=== PATIENT | male | born 1965 | race Caucasian/White ===

== ENCOUNTER 2016-10-05 04:30 | Emergency (ER) | payer OTHER ==
[~2016-10-05] VITALS: Ht 167.6 cm; Wt 90.7 kg
[~2016-10-05 04:30] MED LIST: ALPRAZOLAM0.5 M4 PO; DILAUDID2 MG PO; PANTOPRAZOLE SO40 M1 PO; PANTOPRAZOLE SO40 MG PO; PAXIL20 MG PO; PAXIL30 M1 PO; PERCOCET 325 MG1 TA2 PO; PERCOCET 5-3251 EACH PO; SUMATRIPTAN SUC50 MG PO; ZOFRAN ODT4 MG PO; ZOFRAN4 M2 SL
--- NOTE | 2016-10-05 04:41 | ED GI/GU/ABDOMINAL COMPLAINT ---
History of Present Illness General Chief Complaint: Abdominal Pain/Flank Pain Stated Complaint: ABD PAIN Source: patient Exam Limitations: no limitations Vital Signs & Intake/Output Vital Signs & Intake/Output Vital Signs Date Time Temp Pulse Resp B/P Pulse O2 O2 Flow FiO2 Ox Delivery Rate 10/05 0441 97 Room Air 10/05 0438 97.6 86 18 148/94 97 Room Air Allergies Coded Allergies: Iodinated Contrast Media - Oral and (IODINATED CONTRAST MEDIA - IV DYE) ( Intermediate, VOMITING 10/05/16) cat dander (Intermediate, ASTHMA EXACERBATION 10/05/16) penicillin G (Intermediate, HIVES 10/05/16) Reconcile Medications Alprazolam 0.5 MG TABLET 1 TAB PO PRN ANXIETY (Reported) Oxycodone HCl/Acetaminophen (Percocet 5-325 MG Tablet) 5 MG-325 MG TABLET 1 TAB PO 4XDP PRN PAIN eight...[id number] Oxycodone HCl/Acetaminophen (Percocet 5-325 MG Tablet) 1 EACH TABLET 1 TAB PO Q4-6 PRN PAIN Pantoprazole Sodium 40 MG TABLET.DR 1 TAB PO DAILY ULCERS (Reported) Paroxetine HCl (Paxil) 30 MG TABLET 1 TAB PO DAILY MENTAL HEALTH (Reported) Sucralfate (Carafate) 1 GRAM TABLET 1 TAB PO 4 TIMES/DAY stomach pain Triage Nurses Notes Reviewed? yes Onset: Gradual Duration: day(s):, waxing and waning Timing: recent history Quality/Severity: burning Location: epigastric Radiation: no radiation Activities at Onset: none Prior Abdominal Problems: similar symptoms Modifying Factors: Worsens With: palpation. Associated Symptoms: abdominal pain, nausea/vomiting HPI: 51-year-old gentleman history of gastric ulcers presents with mid epigastric burning discomfort for the past 4-5 days. He states that he has been taking his acid suppressing medicine without improvement. He states that 2 days ago he had a CAT scan at an outpatient facility which was reportedly negative. This morning he felt that the pain had increased was burning in nature consistent with his prior episodes of gastritis. He notes that he has no chest pain fever chills shortness of breath dysuria or hematuria. He does note slight loose stools. He is otherwise well and has no other concerns. Past History Travel History Traveled to [place] past 21 day No Medical History Any Pertinent Medical History? see below for history Neurological: NONE EENT: NONE Cardiovascular: NONE Respiratory: asthma Gastrointestinal: NONE Hepatic: NONE Renal: NONE Musculoskeletal: NONE Psychiatric: anxiety, depression Endocrine: NONE Blood Disorders: NONE Cancer(s): NONE SHEET ROCK LAYER/Reproductive: NONE Surgical History Surgical History: cholecystectomy, hernia repair-umbilical Psychosocial History What is your primary language Ken[place] Tobacco Use: Refused to answer Family History Hx Contributory? No Review of Systems Review of Systems Constitutional: Reports: no symptoms. EENTM: Reports: no symptoms. Respiratory: Reports: no symptoms. Cardiovascular: Reports: no symptoms. GI: Reports: no symptoms. Genitourinary: Reports: no symptoms. Musculoskeletal: Reports: no symptoms. Skin: Reports: no symptoms. Neurological/Psychological: Reports: no symptoms. Hematologic/Endocrine: Reports: no symptoms. Immunologic/Allergic: Reports: no symptoms. All Other Systems: Reviewed and Negative Physical Exam Physical Exam General Appearance: well developed/nourished, mild distress Head: atraumatic, normal appearance Eyes: Bilateral: normal appearance. Ears, Nose, Throat, Mouth: hearing grossly normal, moist mucous membrane Neck: normal inspection, supple, full range of motion, normal alignment Respiratory: normal breath sounds, chest non-tender, no respiratory distress, quiet respiration, lungs clear Cardiovascular: regular rate/rhythm Gastrointestinal: normal bowel sounds, soft, moderate midepigastric tenderness. no rebound no guarding. Mild distention. Back: normal inspection Extremities: normal range of motion Neurologic/Psych: no motor/sensory deficits, awake, alert, oriented x 3 Skin: intact, normal color, warm/dry Core Measures ACS in differential dx? No Severe Sepsis Present: No Septic Shock Present: No Progress Differential Diagnosis: gastritis, hepatitis, versus other Plan of Care: Orders Procedure Date/time Status TROPONIN LEVEL 10/05 431 Complete LIPASE 10/05 431 Complete HEPATIC FUNCTION PANEL 10/05 431 Complete CBC WITHOUT DIFFERENTIAL 10/05 431 Complete BASIC METABOLIC PANEL 10/05 431 Complete AMYLASE 10/05 431 Complete EKG 10/05 431 Active Current Medications Sig/Aurelio Start time Last Medication Dose Stop Time Status Admin Hydromorphone HCl 1 MG ONCE ONE 10/05 0600 UNVr (Dilaudid) 10/05 0601 Laboratory Tests 10/05/16 0509: Anion Gap 12, Estimated GFR > 60, BUN/Creatinine Ratio 13.0, Glucose 96, Calcium 9.6, Total Bilirubin 0.7, Direct Bilirubin 0.4, AST 46, ALT 69, Alkaline Phosphatase 78, Troponin I < 0.01, Total Protein 7.5, Albumin 4.4, Amylase 53, Lipase 134, CBC w Diff NO MAN DIFF REQ, RBC 4.98, MCV 83.2, MCH 27.8, RDW 14.4, MPV 7.8, Gran % 63.7, Lymphocytes % 23.3, Monocytes % 8.0, Eosinophils % 4.6, Basophils % 0.4, Absolute Granulocytes 3.8, Absolute Lymphocytes 1.4, Absolute Monocytes 0.5, Absolute Eosinophils 0.3, Absolute Basophils 0, PUBS MCHC 33.4 Initial ED EKG: normal axis, normal intervals, normal p-waves, normal QRS complex, normal sinus rhythm Departure Departure Disposition: HOME OR SELF CARE Condition: Stable Clinical Impression Primary Impression: Abdominal pain Referrals: GINA GALAVIZ,JAVIER Nathan (PCP/Family) Departure Forms: Customer Survey General Discharge Information Prescriptions: Current Visit Scripts Oxycodone HCl/Acetaminophen (Percocet 5-325 MG Tablet) 1 TAB PO 4XDP PRN PAIN #8 TAB eight...[id number] Sucralfate (Carafate) 1 TAB PO 4 TIMES/DAY #120 TAB Ref 1 Comments 10/05/16, 5:55am.... pt feeling better with supportive medications. Negative CT scan 2 days ago by report. Labs benign. Pt safe for discharge with close follow up. Will add carafate. Pt referred to GI. Close follow up encouraged.
[2016-10-05 05:18] LABS: ABSOLUTE BASOPHIL COUNT 0 /CUMM (0.0-0.2); ABSOLUTE EOSINOPHIL COUNT 0.3 /CUMM (0.0-0.7); ABSOLUTE GRANULOCYTE CT 3.8 /CUMM (1.4-6.5); ABSOLUTE LYMPH COUNT 1.4 /CUMM (1.2-3.4); ABSOLUTE MONOCYTE COUNT 0.5 /CUMM (0.10-0.60); BASOPHIL % 0.4 % (0.0-2.0); EOSINOPHIL % 4.6 % (0-5); GRANULOCYTE % 63.7 % (42.2-75.2); HEMATOCRIT 41.5 % (42-52); MEAN CORPUSCULAR HGB 27.8 PG (27.0-31.0); MEAN CORPUSCULAR HGB CONC 33.4 G/DL (33.0-37.0); MEAN CORPUSCULAR VOLUME 83.2 FL (80.0-94.0); MEAN PLATELET VOLUME 7.8 FL (7.4-10.4); PLATELET COUNT 235 /CUMM (130-400); RBC DISTRIBUTION WIDTH 14.4 % (11.5-14.5); RED BLOOD CELL CT 4.98 /CUMM (4.70-6.10)
[2016-10-05] MEDS ORDERED: CARAFATE1 G1 PO ×2 (05:54→06:11)
[2016-10-05] MEDS ORDERED: PERCOCET 5-3251 EACH PO ×2 (05:54→06:11)
[2016-10-05 05:58] VITALS: BP 140/96
== END 2016-10-05 06:16 ==
LOC: ERH 04:30
PROVIDERS: Pediatrics
DX: R10.13 Epigastric pain (principal)
CPT/HCPCS: 93005; 93010; 96361; 96374; 96375; 96376